=== PATIENT | female | born 1985 | race Caucasian/White ===

== ENCOUNTER 2021-11-28 10:50 | Emergency (ER) | payer OTHER ==
[2021-11-28] MEDS ORDERED: Bacitracin 1 PK ONE (11:18)
[2021-11-28] MEDS ORDERED: Lidocaine 1% (PF) 30 ML VIAL ONE (11:19)
== END 2021-11-28 11:46 | disposition home or self-care (01) ==
LOC: NAV ERS 10:50
DX: S61.316A Laceration without foreign body of right little finger with damage to nail, initial encounter (principal); W45.8XXA Other foreign body or object entering through skin, initial encounter
CPT/HCPCS: 12001; J2001